=== PATIENT | male | born 1990 | race Two or more races ===

== ENCOUNTER 2018-08-27 16:40 | Emergency (ER) | payer OTHER ==
[~2018-08-27] VITALS: Ht 175.3 cm; Wt 75.0 kg
[2018-08-27 17:30] VITALS: BP 122/76
== END 2018-08-27 17:33 | disposition home or self-care (01) ==
LOC: ER 16:40
DX: R10.9 Unspecified abdominal pain (principal); R19.7 Diarrhea, unspecified; F17.290 Nicotine dependence, other tobacco product, uncomplicated
CPT/HCPCS: 99282